=== PATIENT | female | born 1985 | race Caucasian/White ===

== ENCOUNTER 2018-11-17 08:27 | Day surgery (SDC) | payer MEDICAID ==
[2018-11-15 12:08] LABS: BASOPHILS % (AUTO) 0.6 % (0-1); EOSINOPHILS # (AUTO) 0.2 X10'3 (0-0.9); EOSINOPHILS % (AUTO) 3.2 % (0-6); LYMPHOCYTES # (AUTO) 2.4 X10'3 (1.1-4.8); LYMPHOCYTES % (AUTO) 40.9 % (21-51); MEAN CORPUSCULAR HEMOGLOBIN 29.9 PG (27.0-31.0); MEAN CORPUSCULAR HGB CONC 33.1 g/dL (33.0-36.5); MEAN CORPUSCULAR VOLUME 90.2 FL (78-98); MEAN PLATELET VOLUME 10.4 FL (7.4-10.4); MONOCYTES # (AUTO) 0.5 X10'3 (0-0.9); MONOCYTES % (AUTO) 7.8 % (2-12); NEUTROPHILS # (AUTO) 2.8 X10'3 (1.8-7.7); NEUTROPHILS % (AUTO) 47.5 % (42-75); PRE OP HEMATOCRIT 37.8 % (35.0-45.0); PRE OP HEMOGLOBIN 12.5 g/dL (12.0-16.0); PRE OP PLATELET COUNT 207 X10'3 (140-440); RED BLOOD COUNT 4.19 X10'6 (4.20-5.60); RED CELL DISTRIBUTION WIDTH 12.8 % (11.5-14.5)
[2018-11-15 12:17] LABS: CLARITY,URINE SLIGHTLY CLOUDY (Clear); COLOR,URINE YELLOW (Yellow); GLUCOSE, URINE NEGATIVE (Neg); KETONES,URINE NEGATIVE (Neg); LEUKOCYTE ESTERASE ,URINE NEGATIVE (Neg); NITRITES, URINE NEGATIVE (Neg); OCCULT BLOOD,URINE NEGATIVE (Neg); PROTEIN,URINE NEGATIVE (Neg); UROBILINOGEN,URINE 0.2 E.U/dL (0.2-1.0)
[2018-11-15 12:19] LABS: UA COLLECTION TYPE CLN CATCH MIDSTREAM
[2018-11-15 12:30] LABS: SQUAMOUS EPITHELIAL CELL,UR MANY /LPF (FEW)
[2018-11-15 12:31] LABS: MUCUS STRANDS MANY /LPF (Neg)
[2018-11-15 12:32] LABS: BACTERIA,URINE 2+ /HPF (Neg); RBC,URINE 0-2 /HPF (0-2); WBC,URINE NONE SEEN /HPF (0-4); YEAST FEW /HPF (NEGATIVE)
[2018-11-15 12:33] LABS: HCG SERUM QL NEGATIVE
[2018-11-15 12:52] LABS: ALBUMIN 3.8 G/DL (3.4-5.0); ALBUMIN/GLOBULIN RATIO 1.1 (1.1-1.5); ALKALINE PHOSPHATASE 65 IU/L (46-116); BLOOD UREA NITROGEN 11 MG/DL (7-18); BUN/CREATININE RATIO 15.1 (6.6-38.0); CALCIUM 8.9 MG/DL (8.5-10.1); CHLORIDE 104 MMOL/L (99-107); CREATININE 0.73 MG/DL (0.40-0.90); PRE OP ALT 19 U/L (30-65); PRE OP ANION GAP 5 (8-16); PRE OP AST 19 U/L (10-37); PRE OP BILIRUB, TOTAL 0.4 MG/DL (0.0-1.0); PRE OP GLUCOSE 77 MG/DL (70-104); PRE OP POTASSIUM 3.5 MMOL/L (3.4-5.1); PRE OP SODIUM 137 MMOL/L (135-145); TOTAL CARBON DIOXIDE 27.9 MMOL/L (24-32); TOTAL PROTEIN 7.2 G/DL (6.4-8.2); eGFR > 90 ML/MIN
[2018-11-17] VITALS (8 sets, daily range): BP systolic 98–120; BP diastolic 61–76
[~2018-11-17] VITALS: Ht 170.2 cm; Wt 59.4 kg
[~2018-11-17 08:27] MED LIST: ASCO500C15 PO; CHOL10002 PO; CRAN500C5 PO; DULO-31 PO; FLUT100D2 INH
[2018-11-17] MEDS ORDERED: ceFOXitin sod/dextrose 2g/50ml 50 ML IV ONE (08:30)
[2018-11-17] MEDS ORDERED: ringers solution, lacted 1,000 ML IV SCH ×2 (08:30→10:21)
[2018-11-17] MEDS ORDERED: famotidine 20mg tablet PO ONE (08:30)
[2018-11-17] MEDS ORDERED: scopolamine 1.5mg patch.TD72 TD ONE (08:30)
[2018-11-17] MEDS ORDERED: epiNEPHrine 1 mg/ml inj ONE (08:55)
[2018-11-17] MEDS ORDERED: BUPIVAcaine/PF 2.5 mg/ml (0.25%) 30ml vial ONE (08:55)
[2018-11-17] MEDS ORDERED: sevoflurane 250ml liquid IH ONE (09:43)
[2018-11-17] MEDS ORDERED: acetaminophen 1000 MG/100ml vial IV ONE (09:43)
[2018-11-17] MEDS ORDERED: fentaNYL/PF 50MCG/1 ML 2ML syringe ONE (09:45)
[2018-11-17] MEDS ORDERED: midazolam 2 mg/2 ml injection ONE (09:45)
[2018-11-17] MEDS ORDERED: propofol inj 20 ML IV ONE (09:49)
[2018-11-17] MEDS ORDERED: dexamethasone sod phosphate 4mg/ml inj. ONE (09:58)
[2018-11-17] MEDS ORDERED: rocuronium 10mg/ml inj IV ONE (10:05)
[2018-11-17] MEDS ORDERED: ondansetron/PF 4mg/2ml inj ONE (10:05)
[2018-11-17] MEDS ORDERED: meperidine/PF 25mg/ml syringe IV PRN ×2 (10:25)
[2018-11-17] MEDS ORDERED: morphine 4 MG/ML inj SYRINge IV PRN ×2 (10:25)
[2018-11-17] MEDS ORDERED: proCHLORperazine 10 MG/2 ml inj IV PRN (10:25)
[2018-11-17] MEDS ORDERED: ondansetron/PF 4mg/2ml inj IV PRN (10:25)
[2018-11-17] MEDS ORDERED: BUPIVAcaine/PF 2.5 mg/ml (0.25%) 30ml vial IJ ONE (10:37)
[2018-11-17] MEDS ORDERED: ketorolac trometh. 30mg/ml inj. ONE (10:53)
[2018-11-17] MEDS ORDERED: neostigmine methylsulfate 1 MG/ML 10ml vial ONE (10:56)
[2018-11-17] MEDS ORDERED: glycopyrrolate 0.2mg/ml inj ONE (11:01)
--- NOTE | 2018-11-17 11:18 | NUR ---
Received from OR via , accompanied by Anesthesiologist DR PEREZ and report given by Anesthesiolgist. AWAKENS TO VOICE. VITALS STABLE. DRESSING DI. DOROTHY PAIN. ABD SOFT.
[2018-11-17] MEDS: meperidine/PF 25mg/ml syringe IV PRN ×2 (11:28→11:55)
[2018-11-17] MEDS ORDERED: oxyCODONE/APAP 5-325mg tablet PO PRN (12:10)
--- NOTE | 2018-11-17 12:38 | NUR ---
AWAKE AND ORIENTED. VITALS STABLE. DRESSING DI. STATES PAIN IMPROVING. HOME WITH HER MOM AT THIS TIME.
== END 2018-11-17 12:38 | disposition home or self-care (01) ==
LOC: PAS 08:27
PROVIDERS: ATTEND Obstetrics & Gynecology Obstetrics
DX: N83.202 Unspecified ovarian cyst, left side (principal); N83.201 Unspecified ovarian cyst, right side; N80.3 Endometriosis of pelvic peritoneum; F41.8 Other specified anxiety disorders; M19.90 Unspecified osteoarthritis, unspecified site; J45.909 Unspecified asthma, uncomplicated; Z88.8 Allergy status to other drugs, medicaments and biological substances; Z91.048 Other nonmedicinal substance allergy status; Z79.899 Other long term (current) drug therapy; Z72.89 Other problems related to lifestyle; Z85.3 Personal history of malignant neoplasm of breast; Z98.890 Other specified postprocedural states; Z90.710 Acquired absence of both cervix and uterus
CPT/HCPCS: 36415; 58662; 80053; 81001; 82948; 84703; 85025; J0171; J0694; J1100; J1885; J2175; J2250; J2405; J2704; J2710; J3010; J3490; J7120; A7000; J0131